=== PATIENT | male | born 1965 | race Caucasian/White ===

== ENCOUNTER 2022-03-20 19:35 | Emergency (ER) | payer OTHER ==
[~2022-03-20 19:35] MED LIST: DEPO-TESTO200 MG/1 M IM; ERYTHROMYCIN O3.5 GM OS; FENOFIBRATE160 MG PO; LOSARTAN POTAS100 MG PO; METHADONE HCL10 MG PO; METOPROLOL TAR100 MG PO; NORVASC5 MG PO; OMEPRAZOLE20 MG PO
[2022-03-20] MEDS ORDERED: VOLTAREN ARTHRI20 GM TP (21:06)
== END 2022-03-20 21:20 | disposition home or self-care (01) ==
LOC: ER1 19:35
DX: M25.562 Pain in left knee (principal); I10 Essential (primary) hypertension
CPT/HCPCS: 73564; 99283